=== PATIENT | female | born 1990 | race African-American/Black ===

== ENCOUNTER 2018-11-26 12:17 | Emergency (ER) | payer BC ==
[~2018-11-26] VITALS: Ht 170.2 cm; Wt 84.8 kg
[~2018-11-26 12:17] MED LIST: APAP500 PO; COLACE 100 MG100 MG PO; DERMOPLAST SPRA56 ML; IBUPROFEN 800800 M1 PO; IRON325 PO; LANOLIN56 GM; TUCKS MEDICATE1 EAC1
[2018-11-26 12:34] LABS: URINE BILIRUBIN NEGATIVE (Negative); URINE BLOOD 1+ (Negative); URINE CLARITY CLEAR; URINE COLOR YELLOW; URINE GLUCOSE-RANDOM* NEGATIVE (Negative); URINE KETONES NEGATIVE (Negative); URINE LEUKOCYTES 2+ (Negative); URINE NITRITE NEGATIVE (Negative); URINE PROTEIN (DIPSTICK) NEGATIVE (Negative); URINE SPECIFIC GRAVITY 1.015 (1.005-1.035); URINE UROBILINOGEN 0.2 E.U./dl (0.2-1.0)
[2018-11-26 12:40] LABS: ABSOLUTE NEUTROPHILS 3.1 thou/uL (1.4-8.2); BASOPHILS 0.9 % (0.0-2.0); EOSINOPHILS 1.5 % (0.0-3.0); HEMATOCRIT 39.1 % (37.0-47.0); HEMOGLOBIN 13.6 gm/dL (12.0-15.0); LYMPHOCYTES 36.8 % (24.0-44.0); MCH 32.3 pg (26.0-34.0); MCHC 34.7 g/dL (28.0-37.0); MCV 93.1 fL (80.0-100.0); MONOCYTES 7.6 % (1.0-8.0); PLATELET COUNT 313 thou/uL (150-400); POLYS 53.2 % (36.0-66.0); RDW 13.3 % (10.5-14.5); WBC 5.9 thou/uL (4.0-11.0)
[2018-11-26 12:49] LABS: SQUAMOUS >10 Many /LPF (0-3)
[2018-11-26 12:50] LABS: CASTS None Seen /LPF (None Seen); CRYSTALS None Seen /LPF (None Seen); URINE RBC 3-10 Few /HPF (0-2); URINE WBC 6-15 Few /HPF (0-5)
[2018-11-26 12:51] LABS: BACTERIA 1-9 Few /HPF (None Seen)
[2018-11-26] MEDS ORDERED: ACCUNEB SO1.25 MG/1 INH (12:55)
[2018-11-26] MEDS ORDERED: ALBUTEROL2.5 MG/31 INH (12:55)
[2018-11-26 13:00] LABS: CALCIUM 9.2 mg/dL (8.5-10.1); CREATININE 0.9 mg/dL (0.6-1.0); POTASSIUM 3.9 mmol/L (3.5-5.1)
[2018-11-26 13:06] LABS: ALBUMIN 4.1 g/dL (3.4-5.0); TOTAL BILIRUBIN 0.3 mg/dL (<0.1-1.0); TOTAL PROTEIN 8.7 g/dL (6.4-8.2)
[2018-11-26] MEDS ORDERED: CARAFATE 1 GM TA1 G1 PO (14:08)
[2018-11-26] MEDS ORDERED: PROTONIX40 MG PO (14:08)
[2018-11-26] MEDS ORDERED: ZOFRAN ODT4 MG PO (14:08)
[2018-11-26 14:47] VITALS: BP 110/66
== END 2018-11-26 14:48 | disposition home or self-care (01) ==
LOC: ER 12:17
PROVIDERS: Emergency Medicine
DX: K29.70 Gastritis, unspecified, without bleeding (principal)

== ENCOUNTER 2019-06-26 16:14 | Emergency (ER) | payer BC, OTHER ==
[~2019-06-26] VITALS: Ht 170.2 cm; Wt 81.7 kg
[~2019-06-26 16:14] MED LIST changes: +ACCUNEB SO1.25 MG/1 INH; +ALBUTEROL2.5 MG/31 INH; +CARAFATE 1 GM TA1 G1 PO; +PROTONIX40 MG PO; +ZOFRAN ODT4 MG PO
[2019-06-26 16:25] LABS: URINE BILIRUBIN NEGATIVE (Negative); URINE BLOOD NEGATIVE (Negative); URINE CLARITY CLEAR; URINE COLOR YELLOW; URINE GLUCOSE-RANDOM* NEGATIVE (Negative); URINE KETONES NEGATIVE (Negative); URINE NITRITE-REFLEX NEGATIVE (Negative); URINE PROTEIN (DIPSTICK) NEGATIVE (Negative); URINE SPECIFIC GRAVITY 1.025 (1.005-1.035); URINE UROBILINOGEN 0.2 E.U./dl (0.2-1.0)
[2019-06-26 16:27] LABS: URINE LEUKOCYTES-REFLEX 1+ (Negative)
[2019-06-26 16:35] LABS: CASTS None Seen /LPF (None Seen); CRYSTALS None Seen /LPF (None Seen); MUCUS >6 Heavy strn/LPF (None Seen); SQUAMOUS 4-10 Moderate /LPF (0-3); URINE RBC 0-2 Rare /HPF (0-2)
[2019-06-26 16:36] LABS: BACTERIA-REFLEX None Seen /HPF (None Seen)
[2019-06-26 18:33] LABS: ABSOLUTE NEUTROPHILS 2.4 thou/uL (1.4-8.2); BASOPHILS 0.9 % (0.0-2.0); EOSINOPHILS 1.3 % (0.0-3.0); HEMATOCRIT 38.3 % (37.0-47.0); HEMOGLOBIN 12.7 gm/dL (12.0-15.0); LYMPHOCYTES 37.6 % (24.0-44.0); MCH 31.4 pg (26.0-34.0); MCHC 33.2 g/dL (28.0-37.0); MCV 94.5 fL (80.0-100.0); MONOCYTES 11.6 % (1.0-8.0); PLATELET COUNT 295 thou/uL (150-400); POLYS 48.6 % (36.0-66.0); RBC 4.06 mil/uL (4.20-5.00); RDW 13.1 % (10.5-14.5); WBC 4.8 thou/uL (4.0-11.0)
[2019-06-26 18:41] LABS: CALCIUM 9.3 mg/dL (8.5-10.1); CREATININE 1.1 mg/dL (0.6-1.0)
[2019-06-26 18:47] LABS: ALBUMIN 3.7 g/dL (3.4-5.0); TOTAL BILIRUBIN 0.5 mg/dL (<0.1-1.0)
[2019-06-26] MEDS ORDERED: OMEPRAZOLE 20 M20 M1 PO (20:58)
[2019-06-26] MEDS ORDERED: ZOFRAN ODT4 MG PO (20:58)
[2019-06-26] MEDS ORDERED: CARAFATE 1 GM TA1 G1 PO (20:58)
[2019-06-26 21:30] VITALS: BP 115/79
--- NOTE | 2019-06-27 10:21 | EKG ---
[place] [address] [facility] [place] [address] ELECTROCARDIOGRAM REPORT Name: JONELLE BROWN Room #: DEP JEOVANNY Miller#: [id number] Admission: 06/26/19 Attend Phys: Discharge: 06/26/19 Date of : 89 Report #: [id number] THIS REPORT FOR: //name// [facility] ED Test Date: 2019-06-26 Test Time: 16:58:03 Pat Name: JONELLE BROWN Department: Room: Gender: F Batch Maker: BERENICE : 1990 Requested By: Viridiana Rodney Order Number: [id number] MD: Broderick Knight Measurements Intervals [place] Rate: 65 P: 159 AR: 168 QRS: -8 QRSD: 88 T: 125 QT: 383 QTc: 399 Interpretive Statements Sinus rhythm Borderline low voltage, extremity leads Nonspecific T abnormalities, lateral leads No previous ECG available for comparison Electronically Signed On 06-27-2019 10:21:45 [employer] by Broderick Knight [email or web address] <ELECTRONICALLY SIGNED> By: Broderick Knight MD 06/27/19 1021 1658 1658 Broderick Knight MD /EPI
== END 2019-06-26 21:30 | disposition home or self-care (01) ==
LOC: ER 16:14
PROVIDERS: Physician Assistant
DX: K29.70 Gastritis, unspecified, without bleeding (principal); R42 Dizziness and giddiness; J45.909 Unspecified asthma, uncomplicated